=== PATIENT | male | born 1960 | race Two or more races ===

== ENCOUNTER 2022-01-05 22:15 | Inpatient (IN) | payer OTHER ==
[~2022-01-05] VITALS: Ht 182.9 cm; Wt 119.7 kg
[~2022-01-05 22:15] MED LIST: AMLO5TAB88 PO; ASPI-1406 PO; CLOP75TA15 PO; METF-414 PO
[2022-01-05 23:30] VITALS: BP 158/91
[2022-01-06] MEDS ORDERED: ACETAMINOPHEN 650MG SUPP PR PRN (00:45)
[2022-01-06] MEDS ORDERED: BISACODYL 10MG SUPP PR PRN (00:45)
[2022-01-06] MEDS ORDERED: ACETAMINOPHEN 325MG TABLET PO PRN (00:45)
[2022-01-06] MEDS ORDERED: MAGNESIUM HYDROXIDE 400MG/5ML 30ML UDC PO PRN (00:45)
[2022-01-06] MEDS ORDERED: ONDANSETRON HCL 4MG TABLET PO PRN (00:45)
[2022-01-06] MEDS ORDERED: DEXTROSE 50% WATER 50ML SYRINGE IV PRN (05:15)
[2022-01-06] MEDS: BLOOD SUGAR DIAGNOSTIC STRIP TEST SCH ×4 (07:22→20:41)
[2022-01-06] MEDS: INSULIN LISPRO 100 UNITS/ML SUBCUT SCH ×4 (07:50→20:41)
[2022-01-06 08:00] VITALS: BP 104/54
[2022-01-06] MEDS: LIDOCAINE 5% PATCH TOP SCH (09:00)
[2022-01-06] MEDS: CLOPIDOGREL 75MG TABLET PO SCH (09:00)
[2022-01-06] MEDS: DICLOFENAC SODIUM 1% GEL 50GM TOP SCH ×4 (09:00→20:41)
[2022-01-06] MEDS: AMLODIPINE 5MG TABLET PO SCH (09:00)
[2022-01-06] MEDS: LISINOPRIL 5MG TABLET PO SCH (09:00)
[2022-01-06] MEDS: ASPIRIN 81MG EC TABLET PO SCH (09:00)
[2022-01-06] MEDS: HEPARIN 5000 UNITS/ML VIAL SUBCUT SCH ×2 (09:00→20:41)
[2022-01-06] MEDS: DOCUSATE SODIUM 100MG CAPSULE PO SCH ×3 (09:59→18:13)
[2022-01-06] MEDS: METFORMIN HCL 500MG TABLET PO SCH ×2 (10:00→18:10)
[2022-01-06 12:00] VITALS: BP 120/53
[2022-01-06 13:24] LABS: BASOPHILS % 0.6 % (0.0-2.0); EOSINOPHILS % 2.2 % (0.0-5.0); HEMATOCRIT. 40.9 % (42.0-52.0); HEMOGLOBIN. 13.8 g/dL (14.0-18.0); MEAN CORPUSCULAR HEMOGLOBIN 28.5 pg (28.0-32.0); MEAN CORPUSCULAR VOLUME 84.7 fL (80.0-94.0); MEAN PLATELET VOLUME 7.9 fl (7.4-10.4); MONOCYTES % 8.5 % (2.0-8.0); NEUTROPHILS % 42.7 % (40.0-76.0); PLATELET 255 x1000/uL (130-400); RED BLOOD CELL COUNT 4.83 mill/uL (4.7-6.1); RED CELL DISTRIBUTION WIDTH 14.6 % (11.6-14.6)
[2022-01-06 13:26] LABS: PROTHROMBIN TIME 10.8 sec (9.6-11.0)
[2022-01-06 13:30] LABS: CHLORIDE 107 mEq/L (98-107)
[2022-01-06 20:00] VITALS: BP 150/80
[2022-01-07] VITALS (42 sets, daily range): BP systolic 113–159; BP diastolic 46–104
[2022-01-07] MEDS: BLOOD SUGAR DIAGNOSTIC STRIP TEST SCH ×4 (06:34→21:05)
[2022-01-07] MEDS ORDERED: POLYMYXIN B SULFATE 500000 UNITS/VIAL ONE (07:26)
[2022-01-07] MEDS ORDERED: BACITRACIN 15GM TUBE TOP ONE (07:26)
[2022-01-07] MEDS ORDERED: BUPIVACAINE HCL/PF 0.5% (5MG/ML) 10ML ONE (07:26)
[2022-01-07] MEDS ORDERED: THROMBIN (BOVINE) 5000 UNITS/VIAL TOP ONE (07:26)
[2022-01-07] MEDS ORDERED: LIDOCAINE HCL 1% 10 MG/ML 10ML VIAL ONE ×2 (07:26→08:47)
[2022-01-07] MEDS ORDERED: HEPARIN SODIUM 1,000 UNIT/1ML VIAL IV ONE (07:26)
[2022-01-07] MEDS: METFORMIN HCL 500MG TABLET PO SCH ×2 (07:32→17:25)
[2022-01-07] MEDS: INSULIN LISPRO 100 UNITS/ML SUBCUT SCH ×4 (07:32→21:14)
[2022-01-07] MEDS ORDERED: ROCURONIUM BROMIDE 10MG/ML VIAL 5ML IV ONE (08:47)
[2022-01-07] MEDS ORDERED: SUCCINYLCHOLINE CHLORIDE 200MG/10ML IV ONE (08:47)
[2022-01-07] MEDS ORDERED: FENTANYL CITRATE/PF 50MCG/ML 2ML VIAL ONE ×2 (08:48)
[2022-01-07] MEDS ORDERED: MIDAZOLAM HCL 2 MG/2 ML VIAL ONE (08:48)
[2022-01-07] MEDS: CLOPIDOGREL 75MG TABLET PO SCH (08:48)
[2022-01-07] MEDS: LISINOPRIL 5MG TABLET PO SCH ×2 (08:48→18:02)
[2022-01-07] MEDS: AMLODIPINE 5MG TABLET PO SCH ×2 (08:48→18:01)
[2022-01-07] MEDS: ASPIRIN 81MG EC TABLET PO SCH (08:48)
[2022-01-07] MEDS: DOCUSATE SODIUM 100MG CAPSULE PO SCH ×2 (08:48→17:25)
[2022-01-07] MEDS ORDERED: PROPOFOL 200MG/20ML VIAL IV ONE (08:48)
[2022-01-07] MEDS: LIDOCAINE 5% PATCH TOP SCH (08:49)
[2022-01-07] MEDS: DICLOFENAC SODIUM 1% GEL 50GM TOP SCH ×4 (08:49→21:03)
[2022-01-07] MEDS: HEPARIN 5000 UNITS/ML VIAL SUBCUT SCH ×2 (08:49→21:05)
[2022-01-07] MEDS ORDERED: PHENYLEPHRINE HCL 10 MG/ML 1ML (IV VIAL) IV ONE (08:58)
[2022-01-07] MEDS ORDERED: NICARDIPINE 40MG/200ML PREMIX 200 ML IV PRN (09:00)
[2022-01-07] MEDS ORDERED: NALOXONE HCL 0.4MG/ML VIAL IV PRN (10:00)
[2022-01-07] MEDS ORDERED: GLYCOPYRROLATE 0.2 MG/ML 2ML VIAL ONE ×2 (10:26)
[2022-01-07] MEDS ORDERED: NEOSTIGMINE METHYLSULFATE 1MG/ML 10 ML VIAL ONE (10:26)
[2022-01-07] MEDS: MORPHINE SULFATE 4 MG/ML CPJ (NOT FOR IM USE) IV PRN ×2 (11:39→18:36)
[2022-01-07] MEDS ORDERED: HYDROMORPHONE HCL/PF 2MG/ML CPJ IV PRN (12:45)
[2022-01-07] MEDS: NICARDIPINE 50 MG in SODIUM CHLORIDE 0.9% 250 ML IV PRN (15:06)
[2022-01-08] VITALS (88 sets, daily range): BP systolic 99–179; BP diastolic 43–109
[2022-01-08] MEDS: NICARDIPINE 50 MG in SODIUM CHLORIDE 0.9% 250 ML IV PRN (00:09)
[2022-01-08 07:29] LABS: BASOPHILS % 0.2 % (0.0-2.0); HEMATOCRIT. 39.3 % (42.0-52.0); HEMOGLOBIN. 13.1 g/dL (14.0-18.0); LYMPHOCYTES % 27.9 % (20.0-50.0); MEAN CORPUSCULAR HEMOGLOBIN 28.5 pg (28.0-32.0); MEAN CORPUSCULAR VOLUME 85.7 fL (80.0-94.0); MEAN PLATELET VOLUME 8.4 fl (7.4-10.4); MONOCYTES % 7.8 % (2.0-8.0); NEUTROPHILS % 64.1 % (40.0-76.0); PLATELET 254 x1000/uL (130-400); RED BLOOD CELL COUNT 4.58 mill/uL (4.7-6.1); RED CELL DISTRIBUTION WIDTH 14.7 % (11.6-14.6)
[2022-01-08 07:32] LABS: CHLORIDE 108 mEq/L (98-107)
[2022-01-08] MEDS: BLOOD SUGAR DIAGNOSTIC STRIP TEST SCH ×4 (08:00→20:39)
[2022-01-08] MEDS: INSULIN LISPRO 100 UNITS/ML SUBCUT SCH ×4 (08:00→20:54)
[2022-01-08] MEDS: DOCUSATE SODIUM 100MG CAPSULE PO SCH ×2 (09:00→17:00)
[2022-01-08] MEDS: METFORMIN HCL 500MG TABLET PO SCH ×2 (09:17→17:59)
[2022-01-08] MEDS: ASPIRIN 81MG EC TABLET PO SCH (09:17)
[2022-01-08] MEDS: CLOPIDOGREL 75MG TABLET PO SCH (09:17)
[2022-01-08] MEDS: HEPARIN 5000 UNITS/ML VIAL SUBCUT SCH ×2 (09:17→20:53)
[2022-01-08] MEDS: DICLOFENAC SODIUM 1% GEL 50GM TOP SCH ×4 (09:18→20:56)
[2022-01-08] MEDS: LIDOCAINE 5% PATCH TOP SCH (09:18)
[2022-01-08] MEDS: CLONIDINE 0.2MG TABLET PO PRN (17:59)
[2022-01-09] VITALS (53 sets, daily range): BP systolic 101–180; BP diastolic 56–99
[2022-01-09] MEDS: BLOOD SUGAR DIAGNOSTIC STRIP TEST SCH ×4 (07:50→20:53)
[2022-01-09] MEDS: INSULIN LISPRO 100 UNITS/ML SUBCUT SCH ×4 (08:20→20:53)
[2022-01-09] MEDS: METFORMIN HCL 500MG TABLET PO SCH ×2 (08:47→17:22)
[2022-01-09] MEDS: DOCUSATE SODIUM 100MG CAPSULE PO SCH ×3 (08:47→17:00)
[2022-01-09] MEDS: CLOPIDOGREL 75MG TABLET PO SCH (08:47)
[2022-01-09] MEDS: LISINOPRIL 5MG TABLET PO SCH (08:48)
[2022-01-09] MEDS: AMLODIPINE 5MG TABLET PO SCH (08:48)
[2022-01-09] MEDS: LIDOCAINE 5% PATCH TOP SCH (08:48)
[2022-01-09] MEDS: HEPARIN 5000 UNITS/ML VIAL SUBCUT SCH ×2 (08:48→20:52)
[2022-01-09] MEDS: ASPIRIN 81MG EC TABLET PO SCH (08:48)
[2022-01-09] MEDS: DICLOFENAC SODIUM 1% GEL 50GM TOP SCH ×4 (08:49→20:59)
[2022-01-10] VITALS: BP 117/73
[2022-01-10 04:00] VITALS: BP 145/93
[2022-01-10] MEDS: INSULIN LISPRO 100 UNITS/ML SUBCUT SCH ×4 (06:42→20:56)
[2022-01-10] MEDS: BLOOD SUGAR DIAGNOSTIC STRIP TEST SCH ×4 (06:42→20:57)
[2022-01-10 08:00] VITALS: BP 139/78
[2022-01-10] MEDS: METFORMIN HCL 500MG TABLET PO SCH ×2 (08:58→18:39)
[2022-01-10] MEDS: CLOPIDOGREL 75MG TABLET PO SCH (08:58)
[2022-01-10] MEDS: ASPIRIN 81MG EC TABLET PO SCH (08:58)
[2022-01-10] MEDS: DOCUSATE SODIUM 100MG CAPSULE PO SCH ×2 (08:59→18:38)
[2022-01-10] MEDS: LISINOPRIL 5MG TABLET PO SCH (08:59)
[2022-01-10] MEDS: AMLODIPINE 5MG TABLET PO SCH (08:59)
[2022-01-10] MEDS: HEPARIN 5000 UNITS/ML VIAL SUBCUT SCH ×2 (09:00→20:22)
[2022-01-10] MEDS: DICLOFENAC SODIUM 1% GEL 50GM TOP SCH ×4 (09:00→20:57)
[2022-01-10] MEDS: LIDOCAINE 5% PATCH TOP SCH (09:00)
[2022-01-10 12:00] VITALS: BP 140/80
[2022-01-10 16:00] VITALS: BP 121/73
[2022-01-10] MEDS ORDERED: ERGOCALCIFEROL 50000UNITS CAPSULE PO SCH (17:00)
[2022-01-10 20:00] VITALS: BP 126/76
[2022-01-11] VITALS: BP 144/80
[2022-01-11 04:00] VITALS: BP 148/92
[2022-01-11] MEDS: BLOOD SUGAR DIAGNOSTIC STRIP TEST SCH ×4 (06:12→21:25)
[2022-01-11] MEDS: INSULIN LISPRO 100 UNITS/ML SUBCUT SCH ×4 (06:13→21:00)
[2022-01-11 07:21] LABS: BASOPHILS % 0.4 % (0.0-2.0); EOSINOPHILS % 1.8 % (0.0-5.0); HEMATOCRIT. 42.6 % (42.0-52.0); HEMOGLOBIN. 14.3 g/dL (14.0-18.0); LYMPHOCYTES % 38.6 % (20.0-50.0); MEAN CORPUSCULAR HEMOGLOBIN 28.7 pg (28.0-32.0); MEAN CORPUSCULAR VOLUME 85.7 fL (80.0-94.0); MONOCYTES % 7.6 % (2.0-8.0); NEUTROPHILS % 51.6 % (40.0-76.0); PLATELET 256 x1000/uL (130-400); RED BLOOD CELL COUNT 4.97 mill/uL (4.7-6.1); RED CELL DISTRIBUTION WIDTH 14.4 % (11.6-14.6)
[2022-01-11] MEDS: LIDOCAINE 5% PATCH TOP SCH (09:00)
[2022-01-11] MEDS: HEPARIN 5000 UNITS/ML VIAL SUBCUT SCH ×2 (09:00→21:27)
[2022-01-11] MEDS: DICLOFENAC SODIUM 1% GEL 50GM TOP SCH ×4 (09:00→21:00)
[2022-01-11 09:02] LABS: CHLORIDE 104 mEq/L (98-107)
[2022-01-11] MEDS: CLOPIDOGREL 75MG TABLET PO SCH (09:10)
[2022-01-11] MEDS: LISINOPRIL 5MG TABLET PO SCH (09:10)
[2022-01-11] MEDS: ASPIRIN 81MG EC TABLET PO SCH (09:10)
[2022-01-11] MEDS: DOCUSATE SODIUM 100MG CAPSULE PO SCH ×2 (09:10→17:22)
[2022-01-11] MEDS: AMLODIPINE 5MG TABLET PO SCH (09:11)
[2022-01-11] MEDS: METFORMIN HCL 500MG TABLET PO SCH ×2 (09:11→17:21)
[2022-01-11 12:00] VITALS: BP 131/83
[2022-01-11 16:00] VITALS: BP 132/89
[2022-01-11] MEDS ORDERED: LISI-186 PO (17:21)
[2022-01-11] MEDS ORDERED: CLOP75TA15 PO (17:21)
[2022-01-11] MEDS ORDERED: ERGO1250 PO (17:21)
[2022-01-11] MEDS ORDERED: ASPI-1406 PO (17:21)
[2022-01-11] MEDS ORDERED: DICL100G31 TP (17:21)
[2022-01-11] MEDS ORDERED: AMLO5TAB88 PO (17:21)
[2022-01-11] MEDS ORDERED: LIDO1ADH71 TD (17:21)
[2022-01-11 20:00] VITALS: BP 139/87
[2022-01-12] VITALS: BP 123/68
[2022-01-12 04:00] VITALS: BP 141/88
[2022-01-12] MEDS: INSULIN LISPRO 100 UNITS/ML SUBCUT SCH ×4 (06:00→22:18)
[2022-01-12] MEDS: METFORMIN HCL 500MG TABLET PO SCH ×2 (06:00→17:57)
[2022-01-12] MEDS: BLOOD SUGAR DIAGNOSTIC STRIP TEST SCH ×4 (06:00→21:00)
[2022-01-12 08:00] VITALS: BP 132/78
[2022-01-12] MEDS: LIDOCAINE 5% PATCH TOP SCH (09:00)
[2022-01-12] MEDS: HEPARIN 5000 UNITS/ML VIAL SUBCUT SCH ×2 (10:48→22:17)
[2022-01-12] MEDS: DICLOFENAC SODIUM 1% GEL 50GM TOP SCH ×4 (10:48→21:00)
[2022-01-12] MEDS: CLOPIDOGREL 75MG TABLET PO SCH (10:49)
[2022-01-12] MEDS: DOCUSATE SODIUM 100MG CAPSULE PO SCH ×2 (10:55→17:00)
[2022-01-12] MEDS: ASPIRIN 81MG EC TABLET PO SCH (10:55)
[2022-01-12] MEDS: AMLODIPINE 5MG TABLET PO SCH (10:55)
[2022-01-12] MEDS: LISINOPRIL 5MG TABLET PO SCH (10:55)
[2022-01-12 12:00] VITALS: BP 128/75
[2022-01-12 16:00] VITALS: BP 133/74
[2022-01-12 20:00] VITALS: BP 129/71
[2022-01-13] VITALS (7 sets, daily range): BP systolic 125–168; BP diastolic 13–89
[2022-01-13] MEDS: BLOOD SUGAR DIAGNOSTIC STRIP TEST SCH ×4 (07:11→21:00)
[2022-01-13] MEDS: CLONIDINE 0.2MG TABLET PO PRN (07:12)
[2022-01-13] MEDS: INSULIN LISPRO 100 UNITS/ML SUBCUT SCH ×3 (07:15→21:00)
[2022-01-13] MEDS: METFORMIN HCL 500MG TABLET PO SCH ×2 (07:58→17:58)
[2022-01-13] MEDS: DICLOFENAC SODIUM 1% GEL 50GM TOP SCH ×4 (09:00→21:00)
[2022-01-13] MEDS: LIDOCAINE 5% PATCH TOP SCH (09:00)
[2022-01-13] MEDS: DOCUSATE SODIUM 100MG CAPSULE PO SCH ×2 (09:22→17:58)
[2022-01-13] MEDS: CLOPIDOGREL 75MG TABLET PO SCH (09:22)
[2022-01-13] MEDS: AMLODIPINE 5MG TABLET PO SCH (09:22)
[2022-01-13] MEDS: LISINOPRIL 5MG TABLET PO SCH (09:22)
[2022-01-13] MEDS: ASPIRIN 81MG EC TABLET PO SCH (09:22)
[2022-01-13] MEDS: HEPARIN 5000 UNITS/ML VIAL SUBCUT SCH ×2 (09:23→22:09)
[2022-01-14] VITALS: BP 149/84
[2022-01-14 04:00] VITALS: BP 111/66
[2022-01-14] MEDS: BLOOD SUGAR DIAGNOSTIC STRIP TEST SCH (06:36)
[2022-01-14] MEDS: METFORMIN HCL 500MG TABLET PO SCH ×2 (07:32→09:02)
[2022-01-14] MEDS: INSULIN LISPRO 100 UNITS/ML SUBCUT SCH (07:40)
[2022-01-14 08:00] VITALS: BP 159/67
[2022-01-14] MEDS: DICLOFENAC SODIUM 1% GEL 50GM TOP SCH (09:00)
[2022-01-14] MEDS: HEPARIN 5000 UNITS/ML VIAL SUBCUT SCH (09:00)
[2022-01-14] MEDS: LIDOCAINE 5% PATCH TOP SCH (09:00)
[2022-01-14] MEDS: DOCUSATE SODIUM 100MG CAPSULE PO SCH (09:02)
[2022-01-14] MEDS: AMLODIPINE 5MG TABLET PO SCH (09:02)
[2022-01-14] MEDS: LISINOPRIL 5MG TABLET PO SCH (09:03)
[2022-01-14] MEDS: CLOPIDOGREL 75MG TABLET PO SCH (09:12)
[2022-01-14] MEDS: ASPIRIN 81MG EC TABLET PO SCH (09:12)
[2022-01-14] MEDS ORDERED: EVOLOCUMAB 140 MG/ML XX SCH (16:30)
== END 2022-01-14 15:48 | disposition home health service (06) | DRG 24 ==
LOC: 6EST 22:15 → CVICU 01-07 10:35 → 8WST 01-09 17:52
PROVIDERS: ADMIT Family Medicine Adult Medicine; ATTEND Family Medicine Adult Medicine
PROC: 03CJ0ZZ Extirpation of Matter from Left Common Carotid Artery, Open Approach (ICD-10-PCS; principal; 2022-01-07)
PROC: 03CL0ZZ Extirpation of Matter from Left Internal Carotid Artery, Open Approach (ICD-10-PCS; 2022-01-07)
DX: I65.22 Occlusion and stenosis of left carotid artery (principal); I63.9 Cerebral infarction, unspecified; G81.91 Hemiplegia, unspecified affecting right dominant side; E78.5 Hyperlipidemia, unspecified; E11.9 Type 2 diabetes mellitus without complications; G40.909 Epilepsy, unspecified, not intractable, without status epilepticus; Z20.822 Contact with and (suspected) exposure to COVID-19; E66.01 Morbid (severe) obesity due to excess calories; M75.41 Impingement syndrome of right shoulder; I10 Essential (primary) hypertension; R74.01 Elevation of levels of liver transaminase levels; R47.1 Dysarthria and anarthria; G89.29 Other chronic pain; Z68.41 Body mass index [BMI] 40.0-44.9, adult; Z82.49 Family history of ischemic heart disease and other diseases of the circulatory system; Z86.73 Personal history of transient ischemic attack (TIA), and cerebral infarction without residual deficits
CPT/HCPCS: 36415; 71045; 80048; 80053; 82962; 83735; 85025; 86850; 86900; 87426; 88304; 88311; 93005; 97162; 97166; J0330; J1170; J1644; J1815; J2250; J2270; J2370; J2704; J2710; J3010; J3490; J7030; J7050; L3908